=== PATIENT | female | born 2000 | race American Indian/Alaskan Native ===

== ENCOUNTER 2024-12-21 17:10 | Emergency (ER) | payer OTHER ==
[~2024-12-21] VITALS: Ht 167.6 cm; Wt 72.0 kg
[2024-12-21] MEDS ORDERED: AMOX TR-K CLV1 EAC1 PO (21:06)
[2024-12-21] MEDS ORDERED: AMOXICILLIN/CLAVULANATE K 875 MG HOME.PACK PO ONE (21:15)
[2024-12-21] MEDS ORDERED: DIPHTH,PERTUSS(ACELL),TET VAC 0.5 ML SYRINGE IM ONE (21:15)
[2024-12-21 21:53] VITALS: BP 134/82
== END 2024-12-21 21:49 | disposition home or self-care (01) ==
LOC: ED 17:10
DX: S51.851A Open bite of right forearm, initial encounter (principal); W54.0XXA Bitten by dog, initial encounter
CPT/HCPCS: 90471; 90715; 99283-25

== ENCOUNTER 2025-01-08 13:33 | Emergency (ER) | payer OTHER ==
[~2025-01-08] VITALS: Ht 167.6 cm; Wt 88.0 kg
[~2025-01-08 13:33] MED LIST: AMOX TR-K CLV1 EAC1 PO
--- OUTSIDE RECORDS SUMMARY | 2025-01-08 13:40 | XMS ---
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 Jose has no Care Guidelines for this patient. [place] V[facility] COUNT (12 MO.) [facility] NOTE: Visits indicate total known visits. ED/[facility] VISIT TRACKING (12 MO.) [facility] COMPLAINT: - LACERATION 12/21/2024 17:10 [facility] TYPE: Emergency COMPLAINT: - DOG BITE DIAGNOSES: - Bitten by dog, initial encounter - Open bite of left forearm, initial encounter - Open bite of right forearm, initial encounter INPATIENT VISIT TRACKING (12 MO.) No inpatient visits to display in this time frame [id number]
[2025-01-08] MEDS ORDERED: LIDOCAINE/RACEPINEP/TETRACAINE 3 ML SYR TOP ONE (15:15)
[2025-01-08] MEDS ORDERED: AMOX TR-K CLV1 EAC1 PO (15:38)
[2025-01-08 16:19] VITALS: BP 140/96
== END 2025-01-08 16:19 | disposition home or self-care (01) ==
LOC: ED 13:33
DX: S61.552A Open bite of left wrist, initial encounter (principal); S61.052A Open bite of left thumb without damage to nail, initial encounter; W54.0XXA Bitten by dog, initial encounter
CPT/HCPCS: 12002; 73110; 73130; 99283